=== PATIENT | male | born 2000 | race Caucasian/White ===

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

== ENCOUNTER 2021-08-11 14:32 | Emergency (ER) | payer OTHER ==
[~2021-08-11 14:32] MED LIST: BENTYL 20MG TAB20 MG PO; ZOFRAN4 MG PO
[2021-08-11] MEDS ORDERED: AUGMENTIN 875-1 EACH PO (17:20)
[2021-08-11] MEDS ORDERED: HYDROCODON-ACE1 EAC4 PO (17:25)
== END 2021-08-11 17:38 | disposition home or self-care (01) ==
LOC: ER1 14:32
DX: S92.312B Displaced fracture of first metatarsal bone, left foot, initial encounter for open fracture (principal); Z23 Encounter for immunization; W26.8XXA Contact with other sharp object(s), not elsewhere classified, initial encounter; W22.8XXA Striking against or struck by other objects, initial encounter
CPT/HCPCS: 12001; 73630; 90471; 90715; 96372; 99283; J0690

== ENCOUNTER → 2021-09-04 | Outpatient (CLI) | payer OTHER ==
[~2021-09-04] MED LIST changes: +AUGMENTIN 875-1 EACH PO; +HYDROCODON-ACE1 EAC4 PO
== END ==
LOC: KOH-I 08:55
DX: S92.315D Nondisplaced fracture of first metatarsal bone, left foot, subsequent encounter for fracture with routine healing (principal)
CPT/HCPCS: 73630

== ENCOUNTER → 2021-09-20 | Outpatient (CLI) | payer OTHER | LOC: KOH-I 09:16 | DX: S92.312D Displaced fracture of first metatarsal bone, left foot, subsequent encounter for fracture with routine healing (principal) | CPT/HCPCS: 73630 ==